=== PATIENT | male | born 1960 | race Caucasian/White ===

== ENCOUNTER 2025-01-25 07:37 | Emergency (ER) | payer SELFPAY ==
[2025-01-25] MEDS: Sodium Chloride 0.9% 10 ML Syringe FLUSH PRN (08:06)
[2025-01-25 08:10] LABS: BASOPHILS ABSOLUTE AUTO 0.1 x10-3/uL (0.0-0.3); BASOPHILS PERCENT AUTO 0.7 % (0.3-3.8); EOSINOPHILS ABSOLUTE AUTO 0.2 x10-3/uL (0.0-0.6); EOSINOPHILS PERCENT AUTO 1.7 % (0.1-6.8); LYMPHOCYTES ABSOLUTE AUTO 1.9 x10-3/uL (0.5-4.5); LYMPHOCYTES PERCENT AUTO 20.8 % (15.8-45.3); MEAN PLATELET VOLUME 9.9 fL (6.7-11.0); MONOCYTES ABSOLUTE AUTO 0.7 x10-3/uL (0.0-1.2); MONOCYTES PERCENT AUTO 7.5 % (5.5-15.2); NEUTROPHILS ABSOLUTE AUTO 6.3 x10-3/uL (1.7-6.9); NEUTROPHILS PERCENT AUTO 69.3 % (40.3-71.8); PLATELET COUNT,PLT 145 x10(3)uL (117-477); RED BLOOD CELL COUNT 5.20 x10(6)uL (3.90-5.90); RED CELL DISTRIBUTION WIDTH 13.1 % (12.4-15.0); WHITE BLOOD CELL COUNT,WBC 9.1 x10-3/uL (3.2-10.1)
[2025-01-25 08:13] LABS: BLOOD UREA NITROGEN,BUN 13 mg/dL (7-18); CARBON DIOXIDE,CO2 26 mmol/L (21-32); CHLORIDE,CL 106 mmol/L (100-110); CREATININE 0.9 mg/dL (0.70-1.30); EST CRCL DRUG DOSING (CG) 80.22 mL/min; ESTIMATED GFR 95 mL/min (>60); GLUCOSE RANDOM 156 mg/dL (80-116); POTASSIUM,K 4.0 mmol/L (3.5-5.3); SODIUM,NA 140 mmol/L (135-145)
[2025-01-25 08:19] LABS: A/G RATIO 1.1; ALANINE AMINOTRANSFERASE,ALT 38 U/L (12-36); ASPARTATE AMNIOTRANSFERASE,AST 19 IU/L (5-25); BILIRUBIN TOTAL 0.6 mg/dL (0.1-1.3); PROTEIN TOTAL,TP 7.1 g/dL (6.0-8.0)
[2025-01-25 08:28] LABS: TSH ULTRASENSITIVE 0.93 IU/mL (0.36-3.74)
[2025-01-25 08:29] LABS: PRO B-TYPE NATRIUR PEPT,BNPPRO 1200.0 pg/mL (<=125)
[2025-01-25] MEDS: hydrALAZINE 20 MG/ML SDV IVPUSH STA (08:57)
== END 2025-01-25 09:35 | disposition home or self-care (01) ==
LOC: FB.ED 07:37
DX: I16.9 Hypertensive crisis, unspecified (principal); I11.9 Hypertensive heart disease without heart failure; R79.89 Other specified abnormal findings of blood chemistry; Z79.899 Other long term (current) drug therapy
CPT/HCPCS: 71045; 80053; 83880; 84443; 84484; 85025; 93005; 96374; 96375; 99285; J0360; J1920